=== PATIENT | female | born 1945 | race Asian ===

== ENCOUNTER 2017-08-09 09:26 | Inpatient (IN) | payer OTHER ==
[~2017-08-09] VITALS: Ht 170.2 cm; Wt 56.7 kg
[2017-08-09 09:32] VITALS: Ht 170.2 cm; Wt 56.7 kg
[2017-08-09 11:37] LABS: ALBUMIN 3.5 g/dL (3.4-5.0); ALKALINE PHOSPHATASE 108 U/L (46-116); ALT/SGPT 28 U/L (14-59); AST/SGOT 26 U/L (15-37); BILIRUBIN TOTAL 0.2 mg/dL (0.20-1.00); CARBON DIOXIDE 30.2 mmol/L (21-32); CHLORIDE SERUM 104 mmol/L (98-107); CREATININE SERUM 0.8 mg/dL (0.6-1.0); MAGNESIUM 2.2 mg/dL (1.8-2.4); PHOSPHOROUS 3.8 mg/dL (2.5-4.9); POTASSIUM SERUM 4.4 mmol/L (3.5-5.1); SODIUM SERUM 142 mmol/L (136-145); TOTAL PROTEIN, SERUM 7.9 g/dL (6.4-8.2)
[2017-08-09 11:42] LABS: BASOPHIL % 0.1 % (0-2); RED CELL DISTRIBUTION WIDTH 13.6 % (11.5-14.5)
[2017-08-09 11:44] LABS: PLATELET COUNT 491 x10^3mcL (130-400)
[2017-08-09 11:57] LABS: CHOLESTEROL 122 mg/dL (<200); HDL CHOLESTEROL 91 mg/dL (40-60)
[2017-08-09 11:59] LABS: GLUCOSE SERUM 56 mg/dL (74-106)
[2017-08-09 12:37] LABS: UA SPECIFIC GRAVITY 1.015 (1.005-1.035); microscopic required? YES; urine erythrocyte NEGATIVE (NEGATIVE)
[2017-08-09] MEDS ORDERED: NAMENDA10 M2 PO ×2 (13:09→14:34)
[2017-08-09] MEDS ORDERED: ARICEPT10 MG PO (13:09)
[2017-08-09] MEDS ORDERED: SINEMET 25-1001 TAB PO (13:09)
[2017-08-09] MEDS ORDERED: MIRAPEX ER1.5 MG PO (13:10)
[2017-08-09] MEDS ORDERED: GABAPENTIN300 M4 PO (13:10)
[2017-08-09] MEDS ORDERED: PEPCID40 MG PO (13:10)
[2017-08-09] MEDS ORDERED: METFORMIN HCL1000 MG PO (13:11)
[2017-08-09] MEDS ORDERED: HYDROCHLOROTHIA25 MG PO (13:11)
[2017-08-09] MEDS ORDERED: LOVASTATIN40 MG PO (13:11)
[2017-08-09] MEDS ORDERED: NIFEDIPINE60 MG PO (13:11)
[2017-08-09] MEDS ORDERED: LOSARTAN POTASS50 M1 PO (13:11)
[2017-08-09] MEDS ORDERED: LANTUS SOLOS100 U/M1 SQ (13:11)
[2017-08-09] MEDS ORDERED: SEROQUEL25 MG PO (13:12)
[2017-08-09] MEDS ORDERED: SEROQUEL100 MG PO (13:12)
[2017-08-09 13:42] LABS: CHOLESTEROL/HDL RATIO 1.4; FREE T4 1.18 ng/dL (0.76-1.46); FREE THYROXINE INDEX 3.4 ug/dL (1.4-4.5); T4(THYROXINE) 8.6 ug/dL (4.7-13.3)
[2017-08-09 13:47] VITALS: BP 188/106
[2017-08-09 13:55] VITALS: BP 188/106
[2017-08-09 14:24] LABS: T3 TOTAL 0.75 ng/mL
[2017-08-09 17:35] VITALS: BP 164/87
[2017-08-09 21:16] VITALS: BP 166/75
[2017-08-10 05:50] VITALS: BP 170/73
[2017-08-10 09:18] VITALS: BP 156/84
[2017-08-10 13:40] VITALS: BP 128/63
[2017-08-10 16:01] LABS: BASOPHIL % 0.3 % (0-2); RED CELL DISTRIBUTION WIDTH 14.4 % (11.5-14.5)
[2017-08-10 16:02] LABS: PLATELET COUNT 452 x10^3mcL (130-400)
[2017-08-10 16:45] VITALS: BP 128/56
[2017-08-10 21:27] VITALS: BP 112/43
[2017-08-11 05:51] VITALS: BP 118/61
[2017-08-11 07:05] LABS: CALCIUM 9.2 mg/dL (8.5-10.1); CARBON DIOXIDE 27.2 mmol/L (21-32); CHLORIDE SERUM 101 mmol/L (98-107); CREATININE SERUM 0.8 mg/dL (0.6-1.0); GLUCOSE SERUM 162 mg/dL (74-106); SODIUM SERUM 137 mmol/L (136-145)
[2017-08-11 07:11] LABS: POTASSIUM SERUM 5.7 mmol/L (3.5-5.1)
[2017-08-11 07:31] LABS: BASOPHIL % 0.3 % (0-2); RED CELL DISTRIBUTION WIDTH 14.1 % (11.5-14.5)
[2017-08-11 07:32] LABS: PLATELET COUNT 440 x10^3mcL (130-400)
[2017-08-11 09:47] VITALS: BP 117/50
[2017-08-11 14:27] VITALS: BP 105/64
[2017-08-11 16:40] LABS: CALCIUM 8.3 mg/dL (8.5-10.1); CARBON DIOXIDE 28.1 mmol/L (21-32); CHLORIDE SERUM 102 mmol/L (98-107); CREATININE SERUM 0.9 mg/dL (0.6-1.0); GLUCOSE SERUM 95 mg/dL (74-106); POTASSIUM SERUM 4.2 mmol/L (3.5-5.1); SODIUM SERUM 141 mmol/L (136-145)
[2017-08-11 21:01] VITALS: BP 113/48
[2017-08-12 05:28] VITALS: BP 138/64
[2017-08-12 06:54] LABS: CARBON DIOXIDE 27.7 mmol/L (21-32); CHLORIDE SERUM 104 mmol/L (98-107); CREATININE SERUM 0.7 mg/dL (0.6-1.0); GLUCOSE SERUM 101 mg/dL (74-106); POTASSIUM SERUM 4.1 mmol/L (3.5-5.1); SODIUM SERUM 143 mmol/L (136-145)
[2017-08-12 07:00] LABS: BASOPHIL % 0.4 % (0-2); PLATELET COUNT 451 x10^3mcL (130-400); RED CELL DISTRIBUTION WIDTH 13.9 % (11.5-14.5)
[2017-08-12 10:06] VITALS: BP 148/59
[2017-08-12] MEDS ORDERED: LEVAQUIN750 MG PO (16:00)
[2017-08-12] MEDS ORDERED: LAC PO (16:09)
[2017-08-12] MEDS ORDERED: FERROUS SULFAT325 M2 PO (16:26)
[2017-08-12] MEDS ORDERED: PHARMASSURE VI500 MG PO (16:27)
[2017-08-12 16:47] VITALS: BP 148/59
[2017-08-12] MEDS ORDERED: MAC100 PO (16:57)
== END 2017-08-12 17:50 | disposition home health service (06) | DRG 871 ==
LOC: EDSEX 09:26 → ED 09:26 → EDBD 09:26 → DU 13:00 → MU 08-12 07:54
PROVIDERS: Emergency Medicine; Family Medicine
DX: A41.9 Sepsis, unspecified organism (principal); G93.41 Metabolic encephalopathy; N17.0 Acute kidney failure with tubular necrosis; N39.0 Urinary tract infection, site not specified; R65.20 Severe sepsis without septic shock; G20 Parkinson's disease; F02.80 Dementia in other diseases classified elsewhere, unspecified severity, without behavioral disturbance, psychotic disturbance, mood disturbance, and anxiety; E86.0 Dehydration; E11.649 Type 2 diabetes mellitus with hypoglycemia without coma; E11.65 Type 2 diabetes mellitus with hyperglycemia; E11.40 Type 2 diabetes mellitus with diabetic neuropathy, unspecified; E11.51 Type 2 diabetes mellitus with diabetic peripheral angiopathy without gangrene; I10 Essential (primary) hypertension; D64.9 Anemia, unspecified; E78.5 Hyperlipidemia, unspecified; F41.9 Anxiety disorder, unspecified; Z79.4 Long term (current) use of insulin; Z68.22 Body mass index [BMI] 22.0-22.9, adult
CPT/HCPCS: 83880; 84439; 97110-GP; 97116-GP; 97530-GP; J0696; J1815; J3490; J7030; Q0092

== ENCOUNTER 2017-12-04 14:48 | Inpatient (IN) | payer OTHER ==
[~2017-12-04] VITALS: Ht 170.2 cm; Wt 64.6 kg
[~2017-12-04 14:48] MED LIST: ALDACTONE25 MG PO; ARICEPT10 MG PO; ASPIRIN ADULT L81 M5 PO; BACTRIM DS1 TAB PO; BD LACTINEX1.4 MG PO; COZ25 PO; FERROUS SULFAT325 M2 PO; FUROSEMIDE80 MG PO; GABAPENTIN300 M4 PO; GLUCOPHAGE1000 MG PO; HUMALOG100 UNIT/1; HYDROCHLOROTHIA25 MG PO; LAC PO; LANTUS SOLOS100 U/M1 SQ; LASIX40 MG PO; LEVAQUIN750 MG PO; LOPRESSOR50 M1 PO; LOSARTAN POTASS50 M1 PO; LOVASTATIN40 MG PO; MAC100 PO; METFORMIN HCL1000 MG PO; MEV20 PO; MIRAPEX ER1.5 MG PO; MIRAPEX1 MG PO; NAMENDA10 M2 PO; NATURAL IRON65 MG PO; NEU300 PO; NIFEDIPINE60 MG PO; PEPCID40 MG PO; PHARMASSURE VI500 MG PO; SEROQUEL100 MG PO; SEROQUEL25 MG PO; SEROQUEL50 M1 PO; SINEMET 25-1001 TAB PO
[2017-12-04 15:02] VITALS: Ht 170.2 cm; Wt 64.6 kg
[2017-12-04 15:58] LABS: BASOPHIL % 0.1 % (0-2)
[2017-12-04 16:08] LABS: CALCIUM 8.9 mg/dL (8.5-10.1); CARBON DIOXIDE 30.6 mmol/L (21-32); CHLORIDE SERUM 100 mmol/L (98-107); CREATININE SERUM 1.1 mg/dL (0.6-1.0); GLUCOSE SERUM 191 mg/dL (74-106); POTASSIUM SERUM 4.7 mmol/L (3.5-5.1); SODIUM SERUM 138 mmol/L (136-145)
[2017-12-04 16:11] LABS: PLATELET COUNT 448 x10^3mcL (130-400); RED CELL DISTRIBUTION WIDTH 15.8 % (11.5-14.5)
[2017-12-04 16:13] LABS: ALBUMIN 3.3 g/dL (3.4-5.0); ALKALINE PHOSPHATASE 124 U/L (46-116); ALT/SGPT 12 U/L (14-59); AST/SGOT 17 U/L (15-37); BILIRUBIN TOTAL 0.5 mg/dL (0.20-1.00); CHOLESTEROL 127 mg/dL (<200); HDL CHOLESTEROL 74 mg/dL (40-60); MAGNESIUM 2.2 mg/dL (1.8-2.4); PHOSPHOROUS 3.9 mg/dL (2.5-4.9); TOTAL PROTEIN, SERUM 7.7 g/dL (6.4-8.2)
[2017-12-04 17:44] LABS: microscopic required? NO
[2017-12-04 17:52] LABS: urine erythrocyte NEGATIVE (NEGATIVE)
[2017-12-04 18:59] LABS: CHOLESTEROL/HDL RATIO 1.7
[2017-12-04 19:08] LABS: FREE T4 1.11 ng/dL (0.76-1.46); FREE THYROXINE INDEX 2.5 ug/dL (1.4-4.5); T3 TOTAL 0.55 ng/mL; T4(THYROXINE) 6.7 ug/dL (4.7-13.3)
[2017-12-04 19:14] VITALS: BP 127/52
[2017-12-05 05:48] VITALS: BP 105/35
[2017-12-05 06:14] LABS: BASOPHIL % 0.4 % (0-2); PLATELET COUNT 393 x10^3mcL (130-400)
[2017-12-05 06:22] LABS: CALCIUM 8.9 mg/dL (8.5-10.1); CARBON DIOXIDE 28.9 mmol/L (21-32); CHLORIDE SERUM 106 mmol/L (98-107); CREATININE SERUM 0.9 mg/dL (0.6-1.0); GLUCOSE SERUM 77 mg/dL (74-106); MAGNESIUM 2.3 mg/dL (1.8-2.4); PHOSPHOROUS 4.1 mg/dL (2.5-4.9); POTASSIUM SERUM 4.2 mmol/L (3.5-5.1); SODIUM SERUM 141 mmol/L (136-145)
[2017-12-05 09:45] VITALS: BP 147/47
[2017-12-05 13:02] VITALS: BP 138/42
[2017-12-05 17:45] VITALS: BP 134/45
[2017-12-05 18:20] VITALS: BP 134/45
[2017-12-05 20:47] VITALS: BP 134/52
[2017-12-06 05:30] VITALS: BP 126/50
[2017-12-06 06:57] LABS: BASOPHIL % 0.5 % (0-2); CARBON DIOXIDE 27.9 mmol/L (21-32); CHLORIDE SERUM 107 mmol/L (98-107); CREATININE SERUM 1.1 mg/dL (0.6-1.0); PLATELET COUNT 390 x10^3mcL (130-400); POTASSIUM SERUM 3.9 mmol/L (3.5-5.1); SODIUM SERUM 145 mmol/L (136-145)
[2017-12-06 07:00] LABS: GLUCOSE SERUM 49 mg/dL (74-106)
[2017-12-06 07:25] LABS: RED CELL DISTRIBUTION WIDTH 15.9 % (11.5-14.5)
[2017-12-06] MEDS ORDERED: LAC PO (10:05)
[2017-12-06] MEDS ORDERED: AUGMENTIN XR 11 EACH PO (10:06)
[2017-12-06 12:40] VITALS: BP 115/54
[2017-12-06 12:41] VITALS: BP 115/54
== END 2017-12-06 14:16 | disposition home health service (06) | DRG 177 ==
LOC: ED 14:48 → DU 17:59
PROVIDERS: Emergency Medicine; Family Medicine
DX: J69.0 Pneumonitis due to inhalation of food and vomit (principal); N17.0 Acute kidney failure with tubular necrosis; G93.41 Metabolic encephalopathy; I50.40 Unspecified combined systolic (congestive) and diastolic (congestive) heart failure; E44.1 Mild protein-calorie malnutrition; E86.0 Dehydration; G20 Parkinson's disease; I11.0 Hypertensive heart disease with heart failure; F03.90 Unspecified dementia, unspecified severity, without behavioral disturbance, psychotic disturbance, mood disturbance, and anxiety; E11.65 Type 2 diabetes mellitus with hyperglycemia; G90.8 Other disorders of autonomic nervous system; E11.42 Type 2 diabetes mellitus with diabetic polyneuropathy; E11.51 Type 2 diabetes mellitus with diabetic peripheral angiopathy without gangrene; F41.9 Anxiety disorder, unspecified; K21.9 Gastro-esophageal reflux disease without esophagitis; D47.3 Essential (hemorrhagic) thrombocythemia; E11.649 Type 2 diabetes mellitus with hypoglycemia without coma; E78.5 Hyperlipidemia, unspecified; Z98.891 History of uterine scar from previous surgery; Z98.49 Cataract extraction status, unspecified eye; Z88.2 Allergy status to sulfonamides; Z83.3 Family history of diabetes mellitus; Z82.49 Family history of ischemic heart disease and other diseases of the circulatory system; Z82.3 Family history of stroke; Z68.24 Body mass index [BMI] 24.0-24.9, adult
CPT/HCPCS: 83880; 84439; 94150; 97110-GP; 97116-GP; 97530-GP; G0378; J0696; J1815; J2543; J3490; J7030; J7040; Q0092

== ENCOUNTER 2018-03-24 13:53 | Inpatient (IN) | payer OTHER ==
[~2018-03-24] VITALS: Ht 162.6 cm; Wt 68.9 kg
[~2018-03-24 13:53] MED LIST changes: +AUGMENTIN XR 11 EACH PO
[2018-03-24 14:09] VITALS: Ht 162.6 cm; Wt 68.9 kg
[2018-03-24 15:26] LABS: BASOPHIL % 0.6 % (0-2); RED CELL DISTRIBUTION WIDTH 13.3 % (11.5-14.5)
[2018-03-24 15:33] LABS: PLATELET COUNT 419 x10^3mcL (130-400)
[2018-03-24 15:34] LABS: CARBON DIOXIDE 27.1 mmol/L (21-32); CHLORIDE SERUM 102 mmol/L (98-107); CREATININE SERUM 1.9 mg/dL (0.6-1.0); GLUCOSE SERUM 115 mg/dL (74-106); POTASSIUM SERUM 5.4 mmol/L (3.5-5.1); SODIUM SERUM 137 mmol/L (136-145)
[2018-03-24 15:39] LABS: ALBUMIN 3.6 g/dL (3.4-5.0); ALKALINE PHOSPHATASE 131 U/L (46-116); ALT/SGPT 19 U/L (14-59); AST/SGOT 23 U/L (15-37); BILIRUBIN TOTAL 0.2 mg/dL (0.20-1.00); TOTAL PROTEIN, SERUM 8.1 g/dL (6.4-8.2)
[2018-03-24 16:38] LABS: UA SPECIFIC GRAVITY 1.015 (1.005-1.035); microscopic required? YES; urine erythrocyte NEGATIVE (NEGATIVE)
[2018-03-24] MEDS ORDERED: ARICEPT10 MG PO (17:15)
[2018-03-24] MEDS ORDERED: ASPIR 8181 MG PO (17:15)
[2018-03-24] MEDS ORDERED: ALDACTONE25 MG PO (17:15)
[2018-03-24] MEDS ORDERED: LASIX40 MG PO (17:16)
[2018-03-24] MEDS ORDERED: METFORMIN HYD1000 M2 PO (17:16)
[2018-03-24] MEDS ORDERED: METOPROLOL SUCC50 M2 PO (17:16)
[2018-03-24] MEDS ORDERED: COZ25 PO (17:16)
[2018-03-24] MEDS ORDERED: LOVASTATIN40 MG PO (17:16)
[2018-03-24] MEDS ORDERED: MIRALAX17 GM/Dose PO (17:17)
[2018-03-24] MEDS ORDERED: NAMENDA10 M2 PO (17:17)
[2018-03-24] MEDS ORDERED: NEU300 PO (17:17)
[2018-03-24] MEDS ORDERED: PEPCID40 MG PO (17:17)
[2018-03-24] MEDS ORDERED: LANTUS SOLOS100 U/M1 SQ (17:18)
[2018-03-24] MEDS ORDERED: SINEMET 25-1001 TAB PO (17:18)
[2018-03-24] MEDS ORDERED: SEROQUEL50 M1 PO (17:18)
[2018-03-24 17:42] VITALS: BP 159/75
[2018-03-24 18:55] VITALS: BP 161/72
[2018-03-24 19:07] VITALS: BP 169/69
[2018-03-24 20:54] VITALS: BP 138/62
[2018-03-25 05:56] VITALS: BP 134/76
[2018-03-25 06:38] LABS: CARBON DIOXIDE 28.7 mmol/L (21-32); CHLORIDE SERUM 108 mmol/L (98-107); CREATININE SERUM 1.3 mg/dL (0.6-1.0); GLUCOSE SERUM 107 mg/dL (74-106); POTASSIUM SERUM 5.3 mmol/L (3.5-5.1); SODIUM SERUM 143 mmol/L (136-145)
[2018-03-25 09:12] VITALS: BP 154/68
[2018-03-25 12:12] VITALS: BP 149/62
[2018-03-25 16:06] VITALS: BP 165/78
[2018-03-25 21:11] VITALS: BP 165/75
[2018-03-26 05:31] VITALS: BP 125/50
[2018-03-26 06:21] LABS: CALCIUM 9.1 mg/dL (8.5-10.1); CHLORIDE SERUM 108 mmol/L (98-107); GLUCOSE SERUM 165 mg/dL (74-106); POTASSIUM SERUM 4.8 mmol/L (3.5-5.1); SODIUM SERUM 144 mmol/L (136-145)
[2018-03-26 08:32] VITALS: BP 159/65
[2018-03-26] MEDS ORDERED: CEPHALEXIN500 M1 PO (09:27)
[2018-03-26] MEDS ORDERED: LASIX20 MG PO (09:27)
[2018-03-26 11:14] VITALS: BP 163/75
== END 2018-03-26 14:45 | disposition home health service (06) | DRG 57 ==
LOC: ED 13:53 → DU 16:09 → EDBEDREQ 16:14 → DU 17:29
PROVIDERS: Emergency Medicine; Internal Medicine Pulmonary Disease
DX: G20 Parkinson's disease (principal); N39.0 Urinary tract infection, site not specified; N17.9 Acute kidney failure, unspecified; I50.40 Unspecified combined systolic (congestive) and diastolic (congestive) heart failure; E87.2 Acidosis; F02.80 Dementia in other diseases classified elsewhere, unspecified severity, without behavioral disturbance, psychotic disturbance, mood disturbance, and anxiety; R26.81 Unsteadiness on feet; M25.552 Pain in left hip; I11.0 Hypertensive heart disease with heart failure; E86.0 Dehydration; E11.40 Type 2 diabetes mellitus with diabetic neuropathy, unspecified; I10 Essential (primary) hypertension; Z91.81 History of falling; Z79.84 Long term (current) use of oral hypoglycemic drugs; Z79.82 Long term (current) use of aspirin; Z79.4 Long term (current) use of insulin
CPT/HCPCS: 82962; 97110-GP; 97116-GP; 97530-GP; J0696; J1815; J7030

== ENCOUNTER 2020-04-16 22:25 | Observation (INO) | payer OTHER ==
[~2020-04-16] VITALS: Ht 162.6 cm; Wt 61.2 kg
[~2020-04-16 22:25] MED LIST changes: +ASPIR 8181 MG PO; +CEPHALEXIN500 M1 PO; +KEFLEX500 M1 PO; +LASIX20 MG PO; +METFORMIN HYD1000 M2 PO; +METOPROLOL SUCC50 M2 PO; +MIRALAX17 GM/Dose PO; +SERO100 PO
[2020-04-16 22:30] VITALS: Ht 162.6 cm; Wt 61.2 kg
[2020-04-16 23:31] LABS: BASOPHIL % 0.6 % (0-2); PLATELET COUNT 345 x10^3mcL (130-400); RED CELL DISTRIBUTION WIDTH 13.6 % (11.5-14.5)
[2020-04-16 23:49] LABS: microscopic required? YES; urine erythrocyte 1+ (NEGATIVE)
[2020-04-17 00:51] LABS: POTASSIUM SERUM 3.5 mmol/L (3.5-5.1); SODIUM SERUM 136 mmol/L (136-145)
[2020-04-17 00:52] LABS: ALT/SGPT 17 U/L (14-59); BILIRUBIN TOTAL 0.7 mg/dL (0.20-1.00); CALCIUM 8.4 mg/dL (8.5-10.1); CHLORIDE SERUM 103 mmol/L (98-107); CREATININE SERUM 2.9 mg/dL (0.6-1.0); GLUCOSE SERUM 128 mg/dL (74-106)
[2020-04-17 01:00] LABS: ALBUMIN 2.8 g/dL (3.4-5.0); ALKALINE PHOSPHATASE 62 U/L (46-116); AST/SGOT 29 U/L (15-37); CARBON DIOXIDE 17.4 mmol/L (21-32); TOTAL PROTEIN, SERUM 6.2 g/dL (6.4-8.2)
[2020-04-17 03:38] VITALS: BP 140/64
[2020-04-17 06:07] VITALS: BP 144/46
[2020-04-17 08:23] VITALS: BP 148/57
[2020-04-17 11:00] LABS: CALCIUM 8.4 mg/dL (8.5-10.1); CARBON DIOXIDE 23.5 mmol/L (21-32); CHLORIDE SERUM 107 mmol/L (98-107); CREATININE SERUM 2.4 mg/dL (0.6-1.0); GLUCOSE SERUM 141 mg/dL (74-106); POTASSIUM SERUM 3.6 mmol/L (3.5-5.1); SODIUM SERUM 138 mmol/L (136-145)
[2020-04-17 12:11] VITALS: BP 147/58
[2020-04-17 16:40] VITALS: BP 123/52
[2020-04-17 17:49] VITALS: BP 123/52
== END 2020-04-17 18:59 | disposition home or self-care (01) ==
LOC: ED 22:25 → DU 04-17 01:33
PROVIDERS: Emergency Medicine; Internal Medicine; ADMIT Internal Medicine; ATTEND Internal Medicine
DX: E16.2 Hypoglycemia, unspecified (principal); N17.9 Acute kidney failure, unspecified; I13.0 Hypertensive heart and chronic kidney disease with heart failure and stage 1 through stage 4 chronic kidney disease, or unspecified chronic kidney disease; N18.9 Chronic kidney disease, unspecified; I50.42 Chronic combined systolic (congestive) and diastolic (congestive) heart failure; F03.90 Unspecified dementia, unspecified severity, without behavioral disturbance, psychotic disturbance, mood disturbance, and anxiety; N39.0 Urinary tract infection, site not specified; E86.0 Dehydration
CPT/HCPCS: 82962; G0378; J0696; J1644; J7042; J7060; Q0092

== ENCOUNTER 2020-06-12 20:51 | Emergency (ER) | payer OTHER ==
[~2020-06-12] VITALS: Ht 157.5 cm; Wt 59.0 kg
[~2020-06-12 20:51] MED LIST changes: +CARBIDOPA25 MG; +CIPRO XR500 MG PO; +FORTAMET500 M1
[2020-06-12 21:10] VITALS: Ht 157.5 cm; Wt 59.0 kg
[2020-06-12 21:28] LABS: BASOPHIL % 0.8 % (0-2); PLATELET COUNT 343 x10^3mcL (130-400); RED CELL DISTRIBUTION WIDTH 13.6 % (11.5-14.5)
[2020-06-12 21:41] LABS: CALCIUM 8.6 mg/dL (8.5-10.1); CARBON DIOXIDE 24.5 mmol/L (21-32); CHLORIDE SERUM 104 mmol/L (98-107); CREATININE SERUM 1.9 mg/dL (0.6-1.0); GLUCOSE SERUM 324 mg/dL (74-106); POTASSIUM SERUM 4.3 mmol/L (3.5-5.1); SODIUM SERUM 136 mmol/L (136-145)
[2020-06-12 21:46] LABS: ALKALINE PHOSPHATASE 102 U/L (46-116); ALT/SGPT 12 U/L (14-59); AST/SGOT 17 U/L (15-37); BILIRUBIN TOTAL 0.37 mg/dL (0.20-1.00); TOTAL PROTEIN, SERUM 6.5 g/dL (6.4-8.2)
[2020-06-13 03:00] VITALS: BP 161/59
== END 2020-06-13 03:00 | disposition home or self-care (01) ==
LOC: ED 20:51
PROVIDERS: Emergency Medicine
DX: I11.0 Hypertensive heart disease with heart failure (principal); I50.9 Heart failure, unspecified; E11.65 Type 2 diabetes mellitus with hyperglycemia; E86.0 Dehydration; D64.9 Anemia, unspecified; Z88.2 Allergy status to sulfonamides
CPT/HCPCS: 82962; J1815; J7030